=== PATIENT | female | born 1985 | race Caucasian/White ===

== ENCOUNTER 2018-03-28 05:31 | Emergency (ER) | payer SELFPAY ==
[~2018-03-28] VITALS: Ht 177.8 cm; Wt 121.2 kg
[2018-03-28 07:22] VITALS: BP 143/105
== END 2018-03-28 08:03 | disposition home or self-care (01) ==
LOC: ED 07:58
DX: S05.11XA Contusion of eyeball and orbital tissues, right eye, initial encounter (principal); G40.909 Epilepsy, unspecified, not intractable, without status epilepticus; X58.XXXA Exposure to other specified factors, initial encounter; Y93.89 Activity, other specified; Y99.8 Other external cause status; Y92.009 Unspecified place in unspecified non-institutional (private) residence as the place of occurrence of the external cause
CPT/HCPCS: 70450; 70486; 99284

== ENCOUNTER 2018-07-10 10:20 | Emergency (ER) | payer OTHER ==
[~2018-07-10] VITALS: Ht 177.8 cm; Wt 110.0 kg
[2018-07-10] MEDS ORDERED: LEVE100020 PO (10:30)
[2018-07-10 11:34] VITALS: BP 135/90
== END 2018-07-10 13:38 | disposition home or self-care (01) ==
LOC: ED 11:30
DX: G40.319 Generalized idiopathic epilepsy and epileptic syndromes, intractable, without status epilepticus (principal)
CPT/HCPCS: 99283

== ENCOUNTER → 2019-01-28 | Outpatient (CLI) | payer MEDICAID, OTHER ==
[~2019-01-28] MED LIST: LEVE100020 PO
== END | disposition home or self-care (01) ==
LOC: CFH 08:10
PROVIDERS: ATTEND Nurse Practitioner Family
DX: G40.909 Epilepsy, unspecified, not intractable, without status epilepticus (principal)
CPT/HCPCS: 70551

== ENCOUNTER → 2019-02-02 | Outpatient (CLI) | payer MEDICAID, OTHER | END | disposition home or self-care (01) | LOC: CARD 08:22 | PROVIDERS: ATTEND Nurse Practitioner Family | DX: G40.909 Epilepsy, unspecified, not intractable, without status epilepticus (principal) | CPT/HCPCS: 95819 ==